=== PATIENT | male | born 1955 | race Caucasian/White ===

== ENCOUNTER 2021-03-25 10:41 | Emergency (ER) | payer MEDICARE ==
[~2021-03-25] VITALS: Ht 177.8 cm; Wt 75.0 kg
[~2021-03-25 10:41] MED LIST: ALPR0.5T7 PO; AMIT25TA PO; CAPT25TA3 PO; CARV6.2512 PO; FLUC100T PO; HYDR-3248 PO; METF500T17 PO; OMEP20TA62 PO; TRAZ50TA66 PO
[2021-03-25 10:54] VITALS: BP 126/79
--- NOTE | 2021-03-25 11:13 | NUR ---
shift foreman: Pt ambulatory to room from lobby at this time.
--- NOTE | 2021-03-25 11:25 | NUR ---
FIRST CONTACT: Fell 2 days ago, hit head and c/o L neck pain. No blood thinners. PT USES WHEELCHAIR AND CANE WHEN WALKING. PT TO ROOM VIA PERSONAL WHEELCHAIR. POSTIONED TO COMFORT IN BED. ATTACHED TO MONITORS. VSS. NADN. AWAITING ORDERS.
--- NOTE | 2021-03-25 11:43 | NUR ---
HERNESTO CARRANZA TO BEDSIDE FOR EVALUATION.
[2021-03-25] MEDS ORDERED: CYCLOBENZAPRINE 10 MG TABLET ONE (11:55)
--- NOTE | 2021-03-25 11:58 | NUR ---
PT MEDICATED PER EMAR. [email or web address].
[2021-03-25] MEDS ORDERED: CYCLOBENZAPRINE 10 MG TABLET PO ONE (12:00)
--- NOTE | 2021-03-25 12:27 | NUR ---
PT TO BATHROOM VIA PERSONAL WHEEL CHAIR.
--- NOTE | 2021-03-25 12:40 | NUR ---
PT TO CT
--- NOTE | 2021-03-25 12:46 | NUR ---
PT BACK FROM CT
--- NOTE | 2021-03-25 13:04 | NUR ---
HERNESTO CARRANZA BACK TO BEDSIDE TO DISCUSS RESULTS.
--- NOTE | 2021-03-25 13:18 | NUR ---
Patient given discharge instructions and they have confirmed that they understand the instructions. Patient with home wheelchair to d/c. NAD, all questions answered appropriately, denies additional needs at this time. No personal belongings left in room after discharge.
== END 2021-03-25 13:21 | disposition home or self-care (01) ==
LOC: ED 13:15
DX: S16.1XXA Strain of muscle, fascia and tendon at neck level, initial encounter (principal); E11.9 Type 2 diabetes mellitus without complications; K21.9 Gastro-esophageal reflux disease without esophagitis; Z88.6 Allergy status to analgesic agent; Z88.1 Allergy status to other antibiotic agents; Z91.040 Latex allergy status; W18.30XA Fall on same level, unspecified, initial encounter; Y93.89 Activity, other specified; Y92.89 Other specified places as the place of occurrence of the external cause; Y99.8 Other external cause status
CPT/HCPCS: 72125; 99284